=== PATIENT | female | born 1935 | race Two or more races ===

== ENCOUNTER 2016-11-07 03:56 | Observation (INO) | payer OTHER ==
--- NOTE | ~2016-11-07 | HP ---
Unit #: [id number] #: [id number] Patient: CHRISTOPHER KNIGHT [id number] [facility] [address], [place] [address] [id number] I MR#: [id number] NAME: CHRISTOPHER KNIGHT ROOM: 73898 Age: 81 Sex: F Admission Date: 11/07/2016 : 1935 Attending Physician: Adair Rowan M.D. Primary Care Physician: Gilbert Nam Aprn HISTORY AND PHYSICAL HISTORY OF PRESENT ILLNESS The patient is an 81-year-old [place] female with a past medical history of hypertension, arthritis, hyperlipidemia, hypothyroidism, urinary incontinence status post bladder repair with frequent urinary tract infections and remote tobacco use, quitting 14 years ago. She presents to [facility] with chest pressure and associated hypertension. She regularly checks her blood pressure and two days ago it was 213/106. She had associated chest pressure which was anterior chest. No radiation. No nausea. No vomiting. No diaphoresis noted. She did complain of some shortness of breath, but it was made worse with taking a deep breath, not actual exertional shortness of breath. Yesterday she again checked her blood pressure and it was 181/106, so she decided to present to [facility] for evaluation. When she got to the emergency room at [facility] her blood pressure was found to be 177/72. Heart rate was 72. EKG was normal sinus rhythm. Chest x-ray was done in the emergency room on 11/07/2016 and it was negative chest x-ray. No change since 07/06/2015. She also had a head CT without contrast on 11/07/2016 in the emergency room that showed no acute intracranial abnormality. She did have mild generalized cerebral cortical atrophy. Point of care testing in the emergency room showed troponin to be less than 0.05 times 2, taken 2 hours apart. Cardiology was asked to evaluate her for her resistant hypertension. When she arrived to the emergency room urinalysis showed that she did have positive urinary tract infection with 3+ leukocytes and WBCs of 50-100 in her urine and a urine culture is currently pending. She has no prior workup of any cardiac testing other than EKG and an echocardiogram at sometime in the past, which I do not have record of. PAST SURGICAL HISTORY 1. Bladder repair eight years ago. 2. Cholecystectomy. 3. Knee replacement. 4. Lumpectomy to her left breast. SOCIAL HISTORY The patient is fairly active. She ambulates around with a cane and does go to adult daycare Friday through Friday. She quit smoking 14 years ago. She denies any alcohol or illicit drug use. She is Gabonese speaking. Daughter was at the bedside for translation. FAMILY HISTORY Noncontributory. No cardiac history with her mother or father. ALLERGIES Unit #: [id number] #: [id number] Patient: CHRISTOPHER KNIGHT Penicillin and tramadol. HOME MEDICATIONS 1. Lopressor 100 mg b.i.d. 2. Levothyroxine 25 mcg daily. 3. Lipitor 80 mg daily. 4. [place] 5/325 mg q.6 h. p.r.n. 5. Bumex 0.5 mg daily. 6. Losartan/hydrochlorothiazide 50/12.5 mg daily. REVIEW OF SYSTEMS Twelve point review of systems is noted above in history of present illness. It was negative except as otherwise stated. PHYSICAL EXAMINATION GENERAL: The patient is laying in bed. Examination is in the emergency room. No acute distress. VITALS: Temperature 98.2, pulse 72, respiratory rate 15, O2 saturations 97% on 2 liters supplemental oxygen, blood pressure 132/68, weight 81 kg. HEENT: Head is normocephalic, atraumatic. Pupils are equal, round and reactive to light and accommodation. She has good dentition, wearing a top denture plate. NECK: Supple with no jugular venous distension noted. No carotid bruits auscultated. However, the right carotid is definitely more audible than the left. LUNGS: Clear to auscultation with diminished bases. HEART: Regular rate and rhythm. S1 and S2 noted. No murmurs, gallops or rubs appreciated. ABDOMEN: Soft, obese, with positive bowel sounds. Nontender. No hepatojugular reflux noted. EXTREMITIES: No edema. Moves all extremities. NEUROLOGIC: She is alert and oriented, cooperative and pleasant. SKIN: Warm, pink and dry. DIAGNOSTIC STUDIES IMAGING: CT of the head with results as noted above in history of present illness. Chest x-ray no acute findings, as noted above in history of present illness. LABORATORY: Sodium 139, potassium 3.7, chloride 102, CO2 25, BUN 16, creatinine 0.9, glucose 103. To note, all of her labs are unremarkable other than a urinalysis which did show 3+ leukocytes and WBCS of 50-100. She had hemoglobin of 12.5, hematocrit 38.6, white blood cell count 7.8 and platelets 153. AST 26, ALT 17. [id number]-rb-[id number] troponin was less than 0.05. CARDIOVASCULAR: Twelve lead EKG was normal sinus rhythm with a ventricular rate of 83 beats per minute. No ST elevation or depression. ASSESSMENT 1. Uncontrolled hypertension. 2. 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 3. Hyperlipidemia. 4. Obesity. 5. Urinary tract infection. Unit #: [id number] #: [id number] Patient: CHRISTOPHER KNIGHT PLAN Cardiology will rule her out for myocardial infarction with a stress test today and a two-dimensional echo. We will check fasting lipid panel, start her on aspirin 81 mg daily and Norvasc 5 mg b.i.d. with parameters to hold if systolic blood pressure is below 100 for better blood pressure control. She will get a repeat 12-lead EKG. We will trend her cardiac enzymes and send urine cultures for her urinary tract infection. She is on quite a high dose of metoprolol, 100 mg b.i.d. Once her testing has resulted, this may need to be decreased to 75 mg b.i.d. in addition to adding amlodipine to her medication regimen. Further plans per testing results and Dr. Kinney. Dictated by Deidra Brody APRN for Jordan Padron TD: 11/07/2016 09:53 JOB #: [id number] HISTORY AND PHYSICAL Page 1 of 1 X X HISTORY AND PHYSICAL
--- NOTE | ~2016-11-07 | EKG ---
PATIENT: CHRISTOPHER KNIGHT UNIT #: [id number] Ventricular Rate: 73 BPM Atrial Rate: 73 BPM P-R Interval: 160 ms QRS Duration: 76 ms Q-T Interval: 392 ms QTC Calculation(Bezet): 431 ms P [place]: 79 degrees Calculated R [place]: 62 degrees Calculated T [place]: 64 degrees Diagnosis Line: Normal sinus rhythm Diagnosis Line: Normal ECG Diagnosis Line: Diagnosis Line: Confirmed by LADY MAYEN MD ([id number]) on 11/10/2016 Diagnosis Line: 7:21:50 AM INTERPRETING MD: TIARRA JANG
--- NOTE | ~2016-11-07 | CT71 ---
[facility] A Service of [facility] RADIOLOGY TEXT RESULTS PATIENT: CHRISTOPHER KNIGHT LOCATION: [facility] 337-01 : 34 UNIT #: [id number] AGE: [address]: Adair Rowan MD SEX: F ORDER DR: [id number] [facility] [address] [facility]. [place], [place] [address] [id number] I MR#: [id number] Acc #: [id number] NAME: CHRISTOPHER KNIGHT : 1935 SEX: F STUDY DATE/TIME: 11/07/2016 3:57 UNIT: CEDOF ROOM: 24319 STUDY DESCRIPTION: CT Head Wo Contrast Attending Physician: Adair Rowan M.D. Ordering Physician: Jaycob Adkins D.O. Primary Care Physician: Gilbert Nam Aprn MEDICAL IMAGING REPORT This report is preliminary unless electronic signature is present EXAM CT head, noncontrast, 11/07/2016 HISTORY 81-year-old female in the ED complaining of 1-day history of headaches and dizziness. Elevated blood pressure is noted. Confusion/mental status changes. TECHNIQUE CT examination of the head was performed without IV contrast. This CT exam was performed with one or more of the following radiation dose reduction techniques: automatic exposure control, adjustment of mA and/or kV according to patient size, and iterative reconstruction. FINDINGS No acute intracranial abnormality is demonstrated. Mild generalized cerebral cortical atrophy. Moderate patchy diffuse low-attenuation white matter changes, greatest in the frontotemporal regions, nonspecific but likely related to chronic small vessel disease. No evidence of intracranial hemorrhage, mass, mass effect, cerebral edema, hydrocephalus or additional abnormality. IMPRESSION 1. No acute intracranial abnormality. 2. Diffuse chronic changes as noted above. Dictated by... iRgo Veliz M.D. THIS IS AN ELECTRONICALLY VERIFIED REPORT [facility] A Service of [facility] RADIOLOGY TEXT RESULTS PATIENT: MONCHO KNIGHTA LOCATION: [facility] 337-01 : 34 UNIT #: [id number] AGE: [address]: Adair Rowan MD SEX: F ORDER DR: Rigo Veliz M.D. at 11/07/2016 9:54 PM Trevon TD: 11/07/2016 08:02 JOB #: [id number] MEDICAL IMAGING REPORT Page 1 of 1 COPY
--- NOTE | ~2016-11-07 | CT71 ---
[facility] A Service of [facility] & [facility] RADIOLOGY TEXT RESULTS PATIENT: CHRISTOPHER KNIGHT LOCATION: [facility] 337-01 : 34 UNIT #: [id number] AGE: [address]: Adair Rowan MD SEX: F ORDER DR: [id number] [facility] [address] [facility]. [place], [place] [address] [id number] I MR#: [id number] Acc #: [id number] NAME: CHRISTOPHER KNIGHT : 1935 SEX: F STUDY DATE/TIME: 11/08/2016 10:09 UNIT: [address] ROOM: [facility] STUDY DESCRIPTION: CT Head Wo Contrast Attending Physician: Adair Rowan M.D. Ordering Physician: Luan Hamilton M.D. Primary Care Physician: Gilbert Nam Aprn MEDICAL IMAGING REPORT This report is preliminary unless electronic signature is present EXAM Head CT without contrast HISTORY Syncope today. TECHNIQUE Axial images were obtained without contrast. This CT examination was performed with one or more of the following radiation dose reduction techniques: automatic exposure control, adjustment of mA and/or kV according to patient size, and iterative reconstruction. FINDINGS Mild atrophy is noted. There is no evidence of mass lesion, hemorrhage or edema. Mild chronic ischemic changes are seen in the periventricular deep white matter. Extraaxial structures are unremarkable. IMPRESSION Mild atrophy with mild chronic ischemic changes. No acute findings. STAT * RESULT Dictated by... Mike Tay M.D. THIS IS AN ELECTRONICALLY VERIFIED REPORT Mike Tay M.D. at 11/08/2016 4:39 PM WOLFGANG/marvin TD: 11/08/2016 10:43 JOB #: [id number] [facility] A Service of [facility] RADIOLOGY TEXT RESULTS PATIENT: CHRISTOPHER KNIGHT LOCATION: [facility] 337-01 : 34 UNIT #: [id number] AGE: [address]: Adair Rowan MD SEX: F ORDER DR: MEDICAL IMAGING REPORT Page 1 of 1 COPY
--- NOTE | ~2016-11-07 | TH ---
Unit #: [id number] #: [id number] Patient: CHRISTOPHER KNIGHT [id number] [address] [address] [id number] I MR#: [id number] NAME: CHRISTOPHER KNIGHT : 1935 SEX: F STUDY DATE/TIME: 11/11/2016 UNIT: C3A PCU ROOM: [facility] STUDY DESCRIPTION: Lexiscan stress test - Nuclear Attending Physician: Adair Rowan M.D. Primary Care Physician: Gilbert Nam Aprn CARDIOLOGY REPORT PROCEDURE PERFORMED Lexiscan Cardiolite stress test - Nuclear portion. PROCEDURE Using technetium 99m-labeled Cardiolite, rest and stress SPECT images were obtained. Multiple SPECT images were obtained in various views, including horizontal and vertical long axis and short axis views of the left ventricle. Images were obtained by gated SPECT method. The patient was administered 10.92 mCi of Cardiolite at rest. The patient was administered 33.6 mCi of Cardiolite after Lexiscan infusion was completed. On the stress images, there is normal perfusion noted. The rest images show normal perfusion. Comparing the rest and stress images, there is no stress-induced ischemia noted. The left ventricular ejection fraction is calculated to be 71%. There is no focal wall motion abnormality seen. The left ventricular size is small. CONCLUSION 1. No stress-induced ischemia noted. 2. The left ventricular ejection fraction is calculated to be 71%. 3. There is no focal wall motion abnormality seen. 4. The left ventricular size is small. 5. Normal Lexiscan Cardiolite stress test. Dictated by... Jordan Padron TD: 11/11/2016 11:46 JOB #: [id number] Unit #: [id number] #: [id number] Patient: CHRISTOPHER KNIGHT CARDIOLOGY REPORT Page 1 of 1 X Candsi Kinney MD <ELECTRONICALLY SIGNED> 03/08/17 1429 CARDIOLOGY REPORT
--- NOTE | ~2016-11-07 | CR72 ---
[facility] A Service of [facility] & [facility] RADIOLOGY TEXT RESULTS PATIENT: CHRISTOPHER KNIGHT LOCATION: [facility] 337-01 : 34 UNIT #: [id number] AGE: [address]: Adair Rowan MD SEX: F ORDER DR: [id number] [facility] [address] [facility]. [place], [place] [address] [id number] I MR#: [id number] Acc #: [id number] NAME: CHRISTOPHER KNIGHT : 1935 SEX: F STUDY DATE/TIME: 11/07/2016 5:22 UNIT: CEDOF ROOM: 36365 STUDY DESCRIPTION: CR Chest Single View Portable Attending Physician: Adair Rowan M.D. Ordering Physician: Jaycob Adkins D.O. Primary Care Physician: Gilbert Nam Aprn MEDICAL IMAGING REPORT This report is preliminary unless electronic signature is present EXAM AP portable chest 11/07/2016 HISTORY 81-year-old female in the ED with 2-day history of chest pain. Elevated blood pressure. TECHNIQUE AP portable chest x-ray. FINDINGS Heart size and pulmonary vascularity are normal. The lungs are expanded and clear. No visible pulmonary infiltrate or pleural effusion. No change since 07/06/2015. IMPRESSION Negative chest. No change since 07/06/2015. Dictated by... Rigo Veliz M.D. THIS IS AN ELECTRONICALLY VERIFIED REPORT Rigo Veliz M.D. at 11/07/2016 9:54 PM CAROLINA/marvin TD: 11/07/2016 08:19 JOB #: [id number] MEDICAL IMAGING REPORT Page 1 of 1 COPY
--- NOTE | ~2016-11-07 | EKG ---
PATIENT: CHRISTOPHER KNIGHT UNIT #: [id number] Ventricular Rate: 83 BPM Atrial Rate: 83 BPM P-R Interval: 194 ms QRS Duration: 74 ms Q-T Interval: 384 ms QTC Calculation(Bezet): 451 ms P [place]: 73 degrees Calculated R [place]: 61 degrees Calculated T [place]: 57 degrees Diagnosis Line: Normal sinus rhythm Diagnosis Line: Normal ECG Diagnosis Line: No previous ECGs available Diagnosis Line: Confirmed by SHRADDHA DE LEÓN MD ([id number]) on 11/08/2016 Diagnosis Line: 9:34:18 AM INTERPRETING MD: GENET JANG
--- NOTE | ~2016-11-07 | DS ---
Unit #: [id number] #: [id number] Patient: CHRISTOPHER KNIGHT [id number] [address] [address] [id number] I MR#: [id number] NAME: CHRISTOPHER KNIGHT ROOM: [facility] Age: 81 Sex: F Admission Date: 11/07/2016 : 1935 Discharge Date: 11/09/2016 Attending Physician: Adair Rowan M.D. Primary Care Physician: Mitchell Nam DISCHARGE SUMMARY DISCHARGE DIAGNOSES 1. Chest pain, ruled out for acute myocardial infarction. 2. Syncope secondary to hypotension. 3. Hypotension, resolved. 4. History of uncontrolled hypertension. 5. Sinus tachycardia. 6. Anxiety. 7. Normal Lexiscan Cardiolite stress test. 8. Hyperlipidemia. 9. Obesity. DISCHARGE MEDICATIONS Losartan 25 mg daily, metoprolol tartrate 50 mg b.i.d., Lipitor 20 mg q.h.s., aspirin 81 mg daily, hydrocodone/acetaminophen 5/325 q.6 hours p.r.n., levothyroxine 25 mcg daily. HOSPITAL COURSE This is an 81-year-old female, who presented to the emergency room with chest pain. She was ruled out for an acute myocardial infarction with negative cardiac enzymes and troponin. EKG found no acute ischemic changes. The patient was treated with aspirin in the emergency room and started on nitrates. She was hypertensive on admission and was started on amlodipine in addition to losartan and diuretics. She was scheduled for a stress test; however, prior to the stress test, rapid response team was called because the patient had a syncopal episode. She was sitting on the side of the bed and had altered mental status. She received her first dose of Norvasc prior to the syncopal episode. The family reported that she was acting "differently." CT of her head was normal. It was felt the patient's blood pressure dropped, therefore Norvasc was discontinued. Losartan and Bumex were also discontinued. Metoprolol was decreased to 25 mg b.i.d. from 100 mg b.i.d. Today, the patient had Lexiscan Cardiolite stress test and had no complaint of chest pain during the procedure. Nuclear images showed no evidence of ischemia. Ejection fraction of about 70%. She was started on Lipitor because of uncontrolled lipid levels with LDL of 134. Her blood pressure is stable. She is stable for discharge today. PHYSICAL EXAMINATION VITAL SIGNS: Blood pressure 148/74, heart rate 88. CHEST: Clear to auscultation. HEART: S1 and S2. Regular rate and rhythm. Unit #: [id number] #: [id number] Patient: CHRISTOPHER KNIGHT ABDOMEN: Soft and nontender with bowel sounds present. EXTREMITIES: Without leg edema. DIAGNOSTIC STUDIES LABORATORY RESULTS: Cholesterol 208, triglycerides 104, LDL 134, HDL 54. TSH 3.31. Troponin less than 0.05. Urine culture showed mixed growth of gram-positive liv. No suspected urinary tract infection. IMAGING STUDIES: CT of the head shows mild atrophy with mild chronic ischemic changes. No acute findings. 2D echocardiogram pending. DISCHARGE INSTRUCTIONS 1. The patient will be discharged home today. 2. Follow up with [facility] in 7 to 10 days. 3. The patient is to take her blood pressure and heart rate at home b.i.d. 4. Metoprolol has been decreased from 100 mg b.i.d. to 50 mg b.i.d. 5. Losartan has been discontinued to 25 mg daily. Combination of losartan/hydrochlorothiazide and Bumex were discontinued. 6. Note, other changes in her medication regimen. Dictated by... Alex Taylor A.P.R.N. for Jordan Taylor/hannah TD: 11/09/2016 22:42 JOB #: [id number] CC: Candis Kinney M.D. DISCHARGE SUMMARY Page 1 of 1 X Alex Taylor APRN DISCHARGE SUMMARY
--- NOTE | ~2016-11-07 | EKG ---
PATIENT: CHRISTOPHER KNIGHT UNIT #: [id number] Ventricular Rate: 60 BPM Atrial Rate: 60 BPM P-R Interval: 170 ms QRS Duration: 76 ms Q-T Interval: 406 ms QTC Calculation(Bezet): 406 ms P [place]: 75 degrees Calculated R [place]: 49 degrees Calculated T [place]: 35 degrees Diagnosis Line: Normal sinus rhythm Diagnosis Line: Left atrial enlargement Diagnosis Line: Borderline ECG Diagnosis Line: No previous ECGs available Diagnosis Line: Confirmed by SHRADDHA DE LEÓN MD ([id number]) on 11/08/2016 Diagnosis Line: 9:34:05 AM INTERPRETING MD: GENET JANG
--- NOTE | ~2016-11-07 | ST ---
Unit #: [id number] #: [id number] Patient: CHRISTOPHER KNIGHT [id number] [address] [address] [id number] I MR#: [id number] NAME: CHRISTOPHER KNIGHT : 1935 SEX: F STUDY DATE/TIME: 11/09/2016 UNIT: C3A PCU ROOM: [facility] STUDY DESCRIPTION: Attending Physician: Adair Rowan M.D. Primary Care Physician: Mitchell Nam CARDIOLOGY REPORT EXAM Lexiscan Cardiolite stress test FINDINGS Baseline EKG shows sinus tachycardia with a rate of 101 beats per minute. PROCEDURE Lexiscan was injected immediately followed by Cardiolite. The patient had no complaints of chest pain, palpitations, or dizziness. EKG during Lexiscan showed ST depression in the anterolateral leads. Noted for occasional premature ventricular complexes. Maximum blood pressure response 148/78 mmHg at rest and in recovery. Lowest blood pressure 108/72 mmHg. Please correlate these results with nuclear images. Dictated by... Alex Taylor A.P.R.N. for Jordan Taylor/iman TD: 11/09/2016 12:22 JOB #: [id number] CARDIOLOGY REPORT Page 1 of 1 X Alex Taylor APRN CARDIOLOGY REPORT
[2016-11-07 03:46] LABS: POC - CKMB 5.1 ng/mL (0.0-7.9); POC - TROPONIN <0.05 ng/mL (<=0.05)
[2016-11-07 04:26] LABS: URINE SOURCE CLEAN CATCH
[2016-11-07 04:28] LABS: URINE APPEARANCE CLEAR; URINE BILIRUBIN NEG (NEG); URINE BLOOD TRACE (NEG); URINE COLOR YELLOW; URINE GLUCOSE NEG (NEG); URINE KETONE NEG (NEG); URINE LEUKOCYTE ESTERASE 3+ (NEG); URINE NITRATE NEG (NEG); URINE PH 6.5 (5-8); URINE PROTEIN NEG (NEG); URINE SPECIFIC GRAVITY 1.008 (1.003-1.035); URINE UROBILINOGEN 0.2 MG/DL (NEG)
[2016-11-07 04:32] LABS: CULTURE INDICATED? YES; URBCS1 AUWI 0-2 /[HPF] (0-2); URINE BACTERIA AUWI 1+ (NEGATIVE); URINE SQUAMOUS EPITHELIAL CELL OCC /[HPF]; UWBCS1 AUWI 50-100 (0-5)
[2016-11-07 04:32] LABS: BASOPHIL% 0.5 % (0-2.5); EOSINOPHIL# 0.1 X10e3 (0-0.7); EOSINOPHIL% 0.8 % (0.0-7.0); HEMATOCRIT 38.6 % (35.0-45.0); HEMOGLOBIN 12.5 gm/dL (12.0-16.0); LYMPHOCYTE# 1.5 X10e3 (1.0-3.5); LYMPHOCYTE% 18.8 % (17.0-45.0); MEAN CELL VOLUME 92.3 FL (83-96); MEAN CORPUSCULAR HEMOGLOBIN 29.8 PG (28-34); MEAN CORPUSCULAR HGB CONC 32.3 g/dL (30-36); MEAN PLATELET VOLUME 10.9 FL (6.5-11.5); MONOCYTE# 0.7 X10e3 (0-1.0); MONOCYTE% 8.3 % (3.0-12.0); NEUTROPHIL# 5.6 X10e3 (1.5-7.1); NEUTROPHIL% 71.6 % (40-75); PLATELET COUNT 153 X10e3 (140-420); RED BLOOD COUNT 4.19 X10e (3.90-5.30); RED CELL DISTRIBUTION WIDTH 13.3 % (11.0-15.5); WHITE BLOOD COUNT 7.8 X10e3 (4.0-10.5)
[2016-11-07 04:33] LABS: DIFF IND NO
[2016-11-07] MEDS ORDERED: METOPROLOL TAR100 MG PO (04:33)
[2016-11-07] MEDS ORDERED: LEVOTHYROXINE25 MC1 PO (04:34)
[2016-11-07] MEDS ORDERED: LIPITOR20 MG PO (04:34)
[2016-11-07] MEDS ORDERED: HYDROCODON-ACE1 EAC7 PO (04:35)
[2016-11-07] MEDS ORDERED: BUMETANIDE0.5 MG PO (04:36)
[2016-11-07 05:16] LABS: POC - CKMB <1.0 ng/mL (0.0-7.9); POC - TROPONIN <0.05 ng/mL (<=0.05)
[2016-11-07] MEDS ORDERED: COZAAR25 MG PO (05:53)
[2016-11-07 08:09] LABS: ALBUMIN SERUM 3.7 g/dL (3.5-5.0); ALKALINE PHOSPHATASE 81 U/L (32-92); ALT (SGPT) 17 U/L (10-40); AST (SGOT) 26 U/L (10-42); BILIRUBIN, DIRECT 0.1 mg/dL (0.0-0.2); BILIRUBIN,INDIRECT 0.7 mg/dL (0.0-0.9); BILIRUBIN,TOTAL 0.8 mg/dL (0.2-2.0); BLOOD UREA NITROGEN 16 mg/dL (9-23); BUN/CREATININE RATIO 17.77; CALCIUM SERUM 9.1 mg/dL (8.4-10.2); CARBON DIOXIDE 25 mmol/L (22-31); CHLORIDE 102 mmol/L (100-111); CREATININE SERUM 0.9 mg/dL (0.6-1.4); GLOM FILT RATE Estimated ABOVE60 mL/min (>60); GLUCOSE FASTING 103 mg/dL (70-110); POTASSIUM 3.7 mmol/L (3.5-5.1); PROTEIN TOTAL SERUM 6.4 g/dL (6.0-8.3); SODIUM 139 mmol/L (135-145)
[2016-11-07 11:12] LABS: CHOLESTEROL 208 mg/dL (0-200); HDL CHOLESTEROL 54 mg/dL (35-95); LDL/HDL RATIO 2 RATIO (0-4); TRIGLYCERIDES 102 mg/dL (10-160)
[2016-11-07 11:18] LABS: LDL CHOLESTEROL 134 mg/dL (-130)
[2016-11-07 12:13] LABS: MB 4.5 ng/ml
[2016-11-07 17:42] LABS: %MB 2.9 % (0.0-4.0); MB 4.2 ng/ml
[2016-11-09] MEDS ORDERED: ASPIRIN81 MG PO (18:18)
[2016-11-09] MEDS ORDERED: LOPRESSOR PO (18:19)
[2016-11-09] MEDS ORDERED: COZAAR25 MG (18:19)
== END 2016-11-09 18:35 | disposition home or self-care (01) | DRG 313 ==
LOC: CED 03:56 → CEDOF 05:45 → C3A PCU 15:13
PROVIDERS: Emergency Medicine; Internal Medicine Advanced Heart Failure and Transplant Cardiology
DX: R07.89 Other chest pain (principal); I95.9 Hypotension, unspecified; R55 Syncope and collapse; R00.0 Tachycardia, unspecified; E78.5 Hyperlipidemia, unspecified; E78.00 Pure hypercholesterolemia, unspecified; N39.0 Urinary tract infection, site not specified; F41.9 Anxiety disorder, unspecified; Z88.0 Allergy status to penicillin; Z86.79 Personal history of other diseases of the circulatory system; Z87.891 Personal history of nicotine dependence; Z90.49 Acquired absence of other specified parts of digestive tract; M19.90 Unspecified osteoarthritis, unspecified site
CPT/HCPCS: 36415; 70450; 71010; 78452; 80048; 80061; 80076; 81003; 82550; 82553; 82947; 84443; 84484; 85025; 87086; 93005; 93017; 93306; 99285; A9500; G0378; J2785

== ENCOUNTER 2016-12-13 10:12 | Emergency (ER) | payer OTHER ==
--- NOTE | ~2016-12-13 | CT92 ---
[facility] A Service of [facility] & [facility] RADIOLOGY TEXT RESULTS PATIENT: CHRISTOPHER KNIGHT LOCATION: [facility] : 34 UNIT #: [id number] AGE: [address]: Jaycob Adkins DO SEX: F ORDER DR: [id number] [facility] [address] [place], [place] [address] [id number] E MR#: [id number] Acc #: [id number] NAME: CHRISTOPHER KNIGHT : 1935 SEX: F STUDY DATE/TIME: 12/13/2016 14:28 UNIT: [facility] ROOM: STUDY DESCRIPTION: CT Lower Ext Lt Wo Cont Attending Physician: Jaycob Adkins D.O. Ordering Physician: Alfonzo Nova M.D. Primary Care Physician: Gilbert Nam Aprn MEDICAL IMAGING REPORT This report is preliminary unless electronic signature is present EXAM CT scan of the left knee. HISTORY Left knee pain with fracture seen on plain films. Evaluate for full extent of fracture. TECHNIQUE Axial 2-mm images were obtained through the knee without IV contrast, and sagittal and coronal reconstructions were generated. This CT exam was performed with one or more of the following radiation dose reduction techniques: automatic exposure control, adjustment of mA and/or kV according to patient size, and iterative reconstruction. FINDINGS There is a very subtle fracture through the anterior cortex at the bottom of the anterior tibial apophysis. This is seen in 2 adjacent areas at the base of the tibial apophysis. Higher up in the knee, about 1.5 cm below the articular margin, there appears to be a slightly depressed fracture along the anterior margin with an 8-mm wide piece of bone that is pushed back about 2 mm. I believe these fractures extend up the anterior margin of the tibia all the way to the articular surface, where there is a step-off seen where the medial tibial plateau meets the lateral tibial plateau. On image 72, there seems to be a very subtle vertical fracture running through this region. IMPRESSION Although the findings are very subtle, I believe there is a minimally displaced fracture running front to back through the inner portion of the medial tibial plateau. It is best seen on image 72. The fracture planes extend downward about 1 cm, as seen on image 75, and there is a separate area of fracturing in the slightly lower leg about 4 cm from the tibial STS. [facility] A Service of [facility] & [facility] RADIOLOGY TEXT RESULTS PATIENT: CHRISTOPHER KNIGHT LOCATION: [facility] : 34 UNIT #: [id number] AGE: [address]: Jaycob Adkins DO SEX: F ORDER DR: plateau, just below the anterior tibial apophysis. All these fractures are minimally displaced. There is no fat-fluid level identified. There is no significant depression of the tibial plateau. Dictated by... Ayden Cabrera M.D. THIS IS AN ELECTRONICALLY VERIFIED REPORT Ayden Cabrera M.D. at 12/14/2016 10:40 PM Susanne TD: 12/13/2016 17:34 JOB #: [id number] MEDICAL IMAGING REPORT Page 1 of 1 COPY
--- NOTE | ~2016-12-13 | CR252 ---
[facility] A Service of [facility] & [facility] RADIOLOGY TEXT RESULTS PATIENT: CHRISTOPHER KNIGHT LOCATION: [facility] : 34 UNIT #: [id number] AGE: [address]: Jaycob Adkins DO SEX: F ORDER DR: [id number] [facility] [address] [place], [place] [address] [id number] E MR#: [id number] Acc #: [id number] NAME: CHRISTOPHER KNIGHT : 1935 SEX: F STUDY DATE/TIME: 12/13/2016 10:38 UNIT: [facility] ROOM: STUDY DESCRIPTION: CR Tibia and Fibula 2 Views Lt Attending Physician: Alfonzo Nova M.D. Ordering Physician: Alfonzo Nova M.D. Primary Care Physician: Gilbert Nam Aprn MEDICAL IMAGING REPORT This report is preliminary unless electronic signature is present EXAM Left tibia and fibula HISTORY Pain after fall today. FINDINGS AP and lateral view of the tibia show an acute fracture involving the proximal cortex of the proximal tibia on the medial side. It is about 4.5 cm proximal to the end of the bone. Fractures extending to the articular surface are not visible on these plain films. There is a small joint effusion and there are loose bodies present measuring up to 17.0 mm in diameter. If clinically indicated, consider CT imaging for complete evaluation of the fracture. Dictated by... Ayden Cabrera M.D. THIS IS AN ELECTRONICALLY VERIFIED REPORT Ayden Cabrera M.D. at 12/13/2016 4:49 PM Cheryl TD: 12/13/2016 12:28 JOB #: [id number] MEDICAL IMAGING REPORT Page 1 of 1 COPY
--- NOTE | ~2016-12-13 | CR169 ---
[facility] A Service of [facility] & [facility] RADIOLOGY TEXT RESULTS PATIENT: CHRITSOPHER KNIGHT LOCATION: [facility] : 34 UNIT #: [id number] AGE: [address]: Jaycob Adkins DO SEX: F ORDER DR: [id number] [facility] [address] [place], [place] [address] [id number] E MR#: [id number] Acc #: [id number] NAME: CHRISTOPHER KNIGHT : 1935 SEX: F STUDY DATE/TIME: 12/13/2016 10:37 UNIT: [facility] ROOM: STUDY DESCRIPTION: CR Knee 2 Views Lt Attending Physician: Alfonzo Nova M.D. Ordering Physician: Alfonzo Nova M.D. Primary Care Physician: Gilbert Nam Aprn MEDICAL IMAGING REPORT This report is preliminary unless electronic signature is present EXAM Left knee HISTORY Left knee pain after a fall today. FINDINGS AP and lateral views of the left knee were obtained. There is an acute fracture involving the proximal tibia. On the lateral view the fracture is seen in the anterior cortex about 4.5 cm proximal to the end of the bone. Fracture is very subtle on the AP view. I cannot see any definite fracture planes extending into the articular surface. This is a crosstable lateral view and there is fat fluid level. There appear to be multiple loose bodies in the suprapatellar bursa with at least three calcified objects measuring up to 17.0 mm in diameter. IMPRESSION 1. There is an acute fracture visible in the anterior cortex of the proximal tibia about 4.0 cm proximal to the end of the bone. On these images it is not possible to see any extension up toward the articular cartilage but I am concerned that there may be a fracture extending up in that direction and consideration should be given for a CT scan if clinically indicated. 2. Loose bodies are present in the suprapatellar bursa. 3. Small effusion without fat fluid level. Dictated by... Ayden Cabrera M.D. THIS IS AN ELECTRONICALLY VERIFIED REPORT Ayden Cabrera M.D. at 12/13/2016 4:49 PM AMARI/aleena [facility]. [facility] A Service of [facility] & [facility] RADIOLOGY TEXT RESULTS PATIENT: CHRISTOPHER KNIGHT LOCATION: [facility] : 34 UNIT #: [id number] AGE: [address]: Jaycob Adkins DO SEX: F ORDER DR: TD: 12/13/2016 12:23 JOB #: [id number] MEDICAL IMAGING REPORT Page 1 of 1 COPY
[~2016-12-13 10:12] MED LIST: ASPIRIN81 MG PO; BUMETANIDE0.5 MG PO; COZAAR25 MG; COZAAR25 MG PO; HYDROCODON-ACE1 EAC7 PO; LEVOTHYROXINE25 MC1 PO; LIPITOR20 MG PO; LOPRESSOR PO; METOPROLOL TAR100 MG PO
== END 2016-12-13 15:35 | disposition home or self-care (01) ==
LOC: CED 10:12
DX: S82.142A Displaced bicondylar fracture of left tibia, initial encounter for closed fracture (principal); M25.522 Pain in left elbow; I10 Essential (primary) hypertension; W18.09XA Striking against other object with subsequent fall, initial encounter; Y92.410 Unspecified street and highway as the place of occurrence of the external cause
CPT/HCPCS: 73560; 73590; 73700; 99284